=== PATIENT | male | born 1945 | race Caucasian/White ===

== ENCOUNTER 2019-02-07 16:44 | Inpatient (IN) | payer MEDICARE, OTHER | END 2019-02-14 19:38 | disposition left against medical advice (07) | LOC: J4W 02-13 10:16 → JER 16:44 → J4W 02-08 12:33 → JERBED 22:43 ==

== ENCOUNTER 2022-12-21 17:56 | Inpatient (IN) | payer MEDICARE, OTHER ==
[2022-12-21 18:10] VITALS: BMI 20.1
[2022-12-21 19:15] LABS: BASO % 0.6 % (0-2.0); EOS % 2.6 % (0-4.5); HEMATOCRIT 42.2 % (35.4-49); HEMOGLOBIN 14.1 GM/dL (11.7-16.9); MCH 28.4 pg (25.7-33.7); MCHC 33.4 g/dl (32.0-35.9); MEAN CELL VOLUME 85.1 fl (80-96); MEAN PLT VOLUME 9.1 fl (7.5-11.1); MONO % 11.5 % (3.8-10.2); NEUT % 73.3 % (42.8-82.8); PLATELET COUNT 191 10^3/uL (134-434); RBC 4.96 M/mm3 (4.00-5.60); RDW 14.1 % (11.9-15.9); WHITE BLOOD COUNT 5.9 K/mm3 (4.0-10.0)
[2022-12-21 19:18] LABS: EPI CELLS 15 /uL (0-25.1); HYALINE CASTS 1 /uL (0-3.1); URINE APPEARANCE CLEAR; URINE BACTERIA 4 /uL (0-1359); URINE BILIRUBIN NEGATIVE (NEGATIVE); URINE COLOR YELLOW; URINE GLUCOSE (UA) 2+ (NEGATIVE); URINE KETONE NEGATIVE (NEGATIVE); URINE LEUK ESTERASE NEGATIVE (NEGATIVE); URINE NITRITE NEGATIVE (NEGATIVE); URINE PROTEIN 3+ (NEGATIVE); URINE RBC 42 /uL (0-23.9); URINE UROBILINOGEN 0.2 mg/dL (0.2-1.0); URINE WBC 8 /uL (0-25.8)
[2022-12-21 19:36] LABS: POTASSIUM 4.4 mmol/L (3.5-5.1)
[2022-12-21 19:38] LABS: CALCIUM 9.5 mg/dL (8.5-10.1)
[2022-12-21 19:39] LABS: ALBUMIN 3.4 g/dl (3.4-5.0); BLOOD UREA NITROGEN 40.4 mg/dL (7-18)
[2022-12-21 19:42] LABS: CREATININE 2.4 mg/dL (0.55-1.3)
[2022-12-21 19:43] LABS: BILIRUBIN,TOTAL 0.5 mg/dL (0.2-1); TOT PROT 7.5 g/dl (6.4-8.2)
[2022-12-21] MEDS ORDERED: SODIUM CHLORIDE 1,000 ML IV STA (20:35)
[2022-12-21] MEDS ORDERED: hydrALAZINE HCL 20 MG/ML VIAL IVPUSH ONE (21:43)
[2022-12-21] MEDS ORDERED: hydrALAZINE HCL 20 MG/ML VIAL ONE ×2 (22:00→23:28)
[2022-12-21] MEDS: HEPARIN NA (PORCINE) 5,000 UNITS/ML 1ML VIAL SQ SCH (22:05)
[2022-12-21 23:09] LABS: COCAINE, UR NEGATIVE (NEGATIVE); METHADONE, UR NEGATIVE (NEGATIVE); PHENCYCLIDINE,URINE NEGATIVE (NEGATIVE)
[2022-12-21 23:10] LABS: OPIATES, URI NEGATIVE (NEGATIVE); URINE BARBITURATES NEGATIVE (NEGATIVE)
[2022-12-21] MEDS ORDERED: SODIUM CHLORIDE 1,000 ML IV SCH (23:15)
[2022-12-21 23:19] LABS: URINE AMPHETAMINES NEGATIVE (NEGATIVE); URINE BENZODIAZEPINES NEGATIVE (NEGATIVE)
[2022-12-21] MEDS ORDERED: LORazepam 2 MG/ML SDV VIAL IVPUSH ONE (23:21)
[2022-12-22] MEDS: hydrALAZINE HCL 20 MG/ML VIAL IVPUSH PRN (00:03)
[2022-12-22] MEDS: HEPARIN NA (PORCINE) 5,000 UNITS/ML 1ML VIAL SQ SCH ×3 (06:00→22:15)
[2022-12-22] MEDS: INSULIN SLIDING SCALE (NOVOLOG) 1 VIAL SQ SCH ×4 (06:07→22:32)
[2022-12-22 06:39] LABS: HEMATOCRIT 39.2 % (35.4-49); MCH 28.3 pg (25.7-33.7); MCHC 33.2 g/dl (32.0-35.9); MEAN CELL VOLUME 85.3 fl (80-96); MEAN PLT VOLUME 8.8 fl (7.5-11.1); PLATELET COUNT 167 10^3/uL (134-434); RBC 4.59 M/mm3 (4.00-5.60); RDW 13.7 % (11.9-15.9); WHITE BLOOD COUNT 4.8 K/mm3 (4.0-10.0)
[2022-12-22 06:57] LABS: POTASSIUM 3.9 mmol/L (3.5-5.1)
[2022-12-22 06:59] LABS: CALCIUM 8.6 mg/dL (8.5-10.1)
[2022-12-22 07:00] LABS: ALBUMIN 2.7 g/dl (3.4-5.0); BLOOD UREA NITROGEN 36.9 mg/dL (7-18); MAGNESIUM 1.9 mg/dL (1.8-2.4)
[2022-12-22 07:02] LABS: PHOSPHOROUS 2.6 mg/dL (2.5-4.9)
[2022-12-22 07:03] LABS: CREATININE 2.4 mg/dL (0.55-1.3)
[2022-12-22 07:04] LABS: TOT PROT 6.3 g/dl (6.4-8.2)
[2022-12-22 07:07] LABS: BILIRUBIN,TOTAL 0.5 mg/dL (0.2-1)
[2022-12-22] MEDS ORDERED: SODIUM CHLORIDE 1,000 ML IV SCH (07:28)
[2022-12-22] MEDS: hydrALAZINE HCL 25 MG TABLET (FP) PO SCH ×2 (08:03→13:00)
[2022-12-22] MEDS: NIFEdipine E.R. 30 MG TABLET PO SCH (09:38)
[2022-12-22] MEDS ORDERED: PATIENT'S OWN MEDICATION (NON-FORMULARY) (Losartan Potassium 100 MG Tablet) PO SCH (10:00)
[2022-12-22] MEDS ORDERED: NIFEdipine E.R. 90 MG TABLET PO SCH (10:00)
[2022-12-22] MEDS: ERYTHROMYCIN 0.5% OPHTHALMIC OINTMENT 3.5 GM TUBE OD SCH ×2 (11:09→15:38)
[2022-12-22] MEDS: DONEPEZIL HCL 5 MG TABLET (FP) PO SCH (22:14)
[2022-12-22] MEDS: QUEtiapine FUMARATE 25 MG TABLET PO SCH (22:14)
[2022-12-22] MEDS: hydrALAZINE HCL 50 MG TABLET (FP) PO SCH (22:15)
[2022-12-22] MEDS: ATORVASTATIN CA 20 MG TABLET (FP) PO SCH (22:15)
[2022-12-22] MEDS: DOXAZOSIN MESYLATE 2 MG TABLET PO SCH (22:30)
[2022-12-23] MEDS: HEPARIN NA (PORCINE) 5,000 UNITS/ML 1ML VIAL SQ SCH ×3 (05:59→21:56)
[2022-12-23] MEDS: hydrALAZINE HCL 50 MG TABLET (FP) PO SCH ×3 (05:59→21:55)
[2022-12-23] MEDS: INSULIN SLIDING SCALE (NOVOLOG) 1 VIAL SQ SCH ×3 (06:00→16:44)
[2022-12-23] MEDS: NIFEdipine E.R. 30 MG TABLET PO SCH ×2 (09:46→09:57)
[2022-12-23] MEDS: CARVEDILOL 6.25 MG TABLET (FP) PO SCH ×3 (09:46→21:56)
[2022-12-23 10:48] LABS: BASO % 0.7 % (0-2.0); EOS % 4.6 % (0-4.5); HEMATOCRIT 39.6 % (35.4-49); HEMOGLOBIN 13.4 GM/dL (11.7-16.9); LYMPH % 13.9 % (8-40); MCH 28.7 pg (25.7-33.7); MCHC 33.8 g/dl (32.0-35.9); MEAN CELL VOLUME 85.1 fl (80-96); MEAN PLT VOLUME 8.4 fl (7.5-11.1); MONO % 12.1 % (3.8-10.2); NEUT % 68.7 % (42.8-82.8); PLATELET COUNT 176 10^3/uL (134-434); RBC 4.65 M/mm3 (4.00-5.60); WHITE BLOOD COUNT 5.5 K/mm3 (4.0-10.0)
[2022-12-23 11:07] LABS: POTASSIUM 4.2 mmol/L (3.5-5.1)
[2022-12-23 11:08] LABS: CALCIUM 8.9 mg/dL (8.5-10.1)
[2022-12-23 11:12] LABS: CREATININE 2.6 mg/dL (0.55-1.3)
[2022-12-23 11:15] LABS: BLOOD UREA NITROGEN 33.9 mg/dL (7-18)
[2022-12-23] MEDS ORDERED: LORazepam 2 MG/ML SDV VIAL IVPUSH PRN (12:52)
[2022-12-23] MEDS ORDERED: LACTATED RINGERS SOLUTION 1,000 ML/1,000 ML INFUS.BAG IV SCH (17:30)
[2022-12-23 17:33] LABS: EPI CELLS 10 /uL (0-25.1); HYALINE CASTS 1 /uL (0-3.1); PH,URINE 5.5 (5.0-8.0); URINE APPEARANCE CLEAR; URINE BACTERIA 64 /uL (0-1359); URINE BILIRUBIN NEGATIVE (NEGATIVE); URINE COLOR YELLOW; URINE GLUCOSE (UA) TRACE (NEGATIVE); URINE KETONE NEGATIVE (NEGATIVE); URINE LEUK ESTERASE TRACE (NEGATIVE); URINE NITRITE NEGATIVE (NEGATIVE); URINE PROTEIN 3+ (NEGATIVE); URINE RBC 30 /uL (0-23.9); URINE UROBILINOGEN 0.2 mg/dL (0.2-1.0); URINE WBC 53 /uL (0-25.8)
[2022-12-23] MEDS: DOXAZOSIN MESYLATE 2 MG TABLET PO SCH (21:56)
[2022-12-23] MEDS: DONEPEZIL HCL 5 MG TABLET (FP) PO SCH (21:56)
[2022-12-23] MEDS: ATORVASTATIN CA 20 MG TABLET (FP) PO SCH (21:57)
[2022-12-23] MEDS: QUEtiapine FUMARATE 25 MG TABLET PO SCH (21:57)
[2022-12-24] MEDS ORDERED: INSULIN SLIDING SCALE (NOVOLOG) 1 VIAL SQ ONE (00:06)
[2022-12-24] MEDS: INSULIN SLIDING SCALE (NOVOLOG) 1 VIAL SQ SCH ×5 (00:21→22:29)
[2022-12-24] MEDS: HEPARIN NA (PORCINE) 5,000 UNITS/ML 1ML VIAL SQ SCH ×3 (05:30→22:26)
[2022-12-24] MEDS: hydrALAZINE HCL 50 MG TABLET (FP) PO SCH ×4 (05:30→22:39)
[2022-12-24] MEDS: NIFEdipine E.R. 30 MG TABLET PO SCH ×2 (10:29→10:52)
[2022-12-24] MEDS: CARVEDILOL 6.25 MG TABLET (FP) PO SCH ×4 (10:29→22:40)
[2022-12-24] MEDS: QUEtiapine FUMARATE 25 MG TABLET PO SCH ×2 (22:21→22:42)
[2022-12-24] MEDS: DONEPEZIL HCL 5 MG TABLET (FP) PO SCH ×2 (22:22→22:40)
[2022-12-24] MEDS: ATORVASTATIN CA 20 MG TABLET (FP) PO SCH ×2 (22:22→22:42)
[2022-12-24] MEDS: DOXAZOSIN MESYLATE 2 MG TABLET PO SCH ×2 (22:23→22:40)
[2022-12-25] MEDS: HEPARIN NA (PORCINE) 5,000 UNITS/ML 1ML VIAL SQ SCH ×3 (06:17→23:21)
[2022-12-25] MEDS: hydrALAZINE HCL 50 MG TABLET (FP) PO SCH ×3 (06:18→23:21)
[2022-12-25] MEDS: INSULIN SLIDING SCALE (NOVOLOG) 1 VIAL SQ SCH ×4 (06:23→23:22)
[2022-12-25 07:41] LABS: POTASSIUM 4.2 mmol/L (3.5-5.1)
[2022-12-25 07:42] LABS: CALCIUM 8.9 mg/dL (8.5-10.1)
[2022-12-25 07:43] LABS: BLOOD UREA NITROGEN 37.8 mg/dL (7-18); MAGNESIUM 1.8 mg/dL (1.8-2.4)
[2022-12-25 07:46] LABS: CREATININE 2.9 mg/dL (0.55-1.3); PHOSPHOROUS 3.1 mg/dL (2.5-4.9)
[2022-12-25] MEDS: CARVEDILOL 6.25 MG TABLET (FP) PO SCH ×2 (10:00→23:21)
[2022-12-25] MEDS: NIFEdipine E.R. 30 MG TABLET PO SCH (10:00)
[2022-12-25] MEDS ORDERED: INSULIN SLIDING SCALE (NOVOLOG) 1 VIAL SQ ONE ×2 (12:14→17:05)
[2022-12-25] MEDS: DOXAZOSIN MESYLATE 2 MG TABLET PO SCH (23:21)
[2022-12-25] MEDS: DONEPEZIL HCL 5 MG TABLET (FP) PO SCH (23:21)
[2022-12-25] MEDS: ATORVASTATIN CA 20 MG TABLET (FP) PO SCH (23:21)
[2022-12-25] MEDS: QUEtiapine FUMARATE 25 MG TABLET PO SCH (23:22)
[2022-12-26] MEDS: hydrALAZINE HCL 50 MG TABLET (FP) PO SCH ×4 (06:32→21:38)
[2022-12-26] MEDS: HEPARIN NA (PORCINE) 5,000 UNITS/ML 1ML VIAL SQ SCH ×4 (06:33→21:38)
[2022-12-26] MEDS: INSULIN SLIDING SCALE (NOVOLOG) 1 VIAL SQ SCH ×4 (06:33→21:30)
[2022-12-26 09:30] LABS: POTASSIUM 4.1 mmol/L (3.5-5.1)
[2022-12-26 09:36] LABS: CALCIUM 9.1 mg/dL (8.5-10.1)
[2022-12-26 09:37] LABS: ALBUMIN 2.8 g/dl (3.4-5.0)
[2022-12-26 09:40] LABS: CREATININE 2.8 mg/dL (0.55-1.3)
[2022-12-26 09:41] LABS: TOT PROT 6.8 g/dl (6.4-8.2)
[2022-12-26 09:42] LABS: BILIRUBIN,TOTAL 0.4 mg/dL (0.2-1)
[2022-12-26] MEDS: CARVEDILOL 6.25 MG TABLET (FP) PO SCH ×3 (10:24→21:38)
[2022-12-26] MEDS: NIFEdipine E.R. 30 MG TABLET PO SCH ×2 (10:24→10:34)
[2022-12-26] MEDS ORDERED: HALOPERIDOL LACTATE 5 MG/ML IM ONE (15:01)
[2022-12-26] MEDS: DONEPEZIL HCL 5 MG TABLET (FP) PO SCH (21:38)
[2022-12-26] MEDS: DOXAZOSIN MESYLATE 2 MG TABLET PO SCH (21:38)
[2022-12-26] MEDS: ATORVASTATIN CA 20 MG TABLET (FP) PO SCH (21:38)
[2022-12-26] MEDS: QUEtiapine FUMARATE 25 MG TABLET PO SCH (21:39)
[2022-12-26] MEDS: hydrALAZINE HCL 20 MG/ML VIAL IVPUSH PRN (21:41)
[2022-12-26 22:06] LABS: ANTIGLOMERULAR BASEMENT MEN.AB <0.2 units (0.0-0.9); ATYPICAL pANCA <1:20 titer (Neg:<1:20); C-ANCA <1:20 titer (Neg:<1:20)
[2022-12-27] MEDS: hydrALAZINE HCL 20 MG/ML VIAL IVPUSH PRN (02:23)
[2022-12-27] MEDS: HEPARIN NA (PORCINE) 5,000 UNITS/ML 1ML VIAL SQ SCH ×3 (05:51→22:23)
[2022-12-27] MEDS: hydrALAZINE HCL 50 MG TABLET (FP) PO SCH (05:51)
[2022-12-27] MEDS: INSULIN SLIDING SCALE (NOVOLOG) 1 VIAL SQ SCH ×4 (06:05→22:23)
[2022-12-27 06:45] LABS: HEMATOCRIT 39.8 % (35.4-49); HEMOGLOBIN 12.9 GM/dL (11.7-16.9); MCH 28.1 pg (25.7-33.7); MCHC 32.4 g/dl (32.0-35.9); MEAN CELL VOLUME 86.7 fl (80-96); MEAN PLT VOLUME 8.9 fl (7.5-11.1); PLATELET COUNT 241 10^3/uL (134-434); RBC 4.59 M/mm3 (4.00-5.60); RDW 13.6 % (11.9-15.9)
[2022-12-27 07:16] LABS: POTASSIUM 4.3 mmol/L (3.5-5.1)
[2022-12-27 07:17] LABS: CALCIUM 9.2 mg/dL (8.5-10.1)
[2022-12-27 07:18] LABS: BLOOD UREA NITROGEN 40.4 mg/dL (7-18); MAGNESIUM 1.9 mg/dL (1.8-2.4)
[2022-12-27 07:21] LABS: CREATININE 2.5 mg/dL (0.55-1.3); PHOSPHOROUS 3.7 mg/dL (2.5-4.9)
[2022-12-27] MEDS: NIFEdipine E.R. 30 MG TABLET PO SCH (10:37)
[2022-12-27] MEDS: CARVEDILOL 6.25 MG TABLET (FP) PO SCH (10:39)
[2022-12-27] MEDS: VALSARTAN 160 MG TABLET PO SCH (14:51)
[2022-12-27] MEDS: DONEPEZIL HCL 5 MG TABLET (FP) PO SCH (22:23)
[2022-12-27] MEDS: ATORVASTATIN CA 20 MG TABLET (FP) PO SCH (22:23)
[2022-12-27] MEDS: QUEtiapine FUMARATE 25 MG TABLET PO SCH (22:23)
[2022-12-28] MEDS: INSULIN SLIDING SCALE (NOVOLOG) 1 VIAL SQ SCH ×4 (06:35→21:27)
[2022-12-28] MEDS: HEPARIN NA (PORCINE) 5,000 UNITS/ML 1ML VIAL SQ SCH ×3 (06:35→21:26)
[2022-12-28] MEDS: VALSARTAN 160 MG TABLET PO SCH ×2 (10:00→10:06)
[2022-12-28] MEDS: NIFEdipine E.R. 30 MG TABLET PO SCH ×2 (10:00→10:06)
[2022-12-28] MEDS: DONEPEZIL HCL 5 MG TABLET (FP) PO SCH (21:26)
[2022-12-28] MEDS: ATORVASTATIN CA 20 MG TABLET (FP) PO SCH (21:27)
[2022-12-28] MEDS: QUEtiapine FUMARATE 25 MG TABLET PO SCH (21:28)
[2022-12-29] MEDS: hydrALAZINE HCL 20 MG/ML VIAL IVPUSH PRN ×2 (03:14→22:52)
[2022-12-29] MEDS: HEPARIN NA (PORCINE) 5,000 UNITS/ML 1ML VIAL SQ SCH ×3 (06:56→22:50)
[2022-12-29] MEDS: INSULIN SLIDING SCALE (NOVOLOG) 1 VIAL SQ SCH ×4 (06:56→22:51)
[2022-12-29] MEDS ORDERED: amLODIPine BESYLATE 10 MG TABLET (FP) PO ONE (08:00)
[2022-12-29 09:18] LABS: POTASSIUM 4.4 mmol/L (3.5-5.1)
[2022-12-29 09:20] LABS: BLOOD UREA NITROGEN 40.9 mg/dL (7-18); CALCIUM 9.1 mg/dL (8.5-10.1)
[2022-12-29 09:24] LABS: CREATININE 2.5 mg/dL (0.55-1.3); PHOSPHOROUS 3.2 mg/dL (2.5-4.9)
[2022-12-29] MEDS: VALSARTAN 160 MG TABLET PO SCH ×2 (10:34→10:37)
[2022-12-29] MEDS ORDERED: VALSARTAN 160 MG TABLET PO ONE (12:27)
[2022-12-29] MEDS: DONEPEZIL HCL 5 MG TABLET (FP) PO SCH (22:49)
[2022-12-29] MEDS: QUEtiapine FUMARATE 25 MG TABLET PO SCH (22:50)
[2022-12-29] MEDS: ATORVASTATIN CA 20 MG TABLET (FP) PO SCH (22:50)
[2022-12-30] MEDS: INSULIN SLIDING SCALE (NOVOLOG) 1 VIAL SQ SCH ×2 (07:25→11:41)
[2022-12-30] MEDS: HEPARIN NA (PORCINE) 5,000 UNITS/ML 1ML VIAL SQ SCH (07:25)
[2022-12-30] MEDS: VALSARTAN 160 MG TABLET PO SCH (09:58)
[2022-12-30] MEDS ORDERED: amLODIPine BESYLATE 10 MG TABLET (FP) PO SCH (10:00)
[2022-12-30 12:24] VITALS: BP 160/66; PULSE 64; RESP 18; TEMP 97.8
== END 2022-12-30 13:28 | disposition home or self-care (01) | DRG 77 ==
LOC: JER 17:56 → JERBED 21:43 → OBSVTOIN 22:00 → J4S 12-22 00:11
PROVIDERS: ADMIT Internal Medicine; ATTEND Internal Medicine
DX: I67.4 Hypertensive encephalopathy (principal); E43 Unspecified severe protein-calorie malnutrition; I13.0 Hypertensive heart and chronic kidney disease with heart failure and stage 1 through stage 4 chronic kidney disease, or unspecified chronic kidney disease; F01.518 Vascular dementia, unspecified severity, with other behavioral disturbance; I69.354 Hemiplegia and hemiparesis following cerebral infarction affecting left non-dominant side; R13.10 Dysphagia, unspecified; E11.9 Type 2 diabetes mellitus without complications; N18.30 Chronic kidney disease, stage 3 unspecified; E11.22 Type 2 diabetes mellitus with diabetic chronic kidney disease; I69.320 Aphasia following cerebral infarction; Z68.20 Body mass index [BMI] 20.0-20.9, adult
CPT/HCPCS: 0241U-QW; 36415; 70450-TC; 70551-TC; 71045-TC-FY; 76775-TC; 80048; 80053; 80307; 81003; 82570; 82962; 83036; 83516; 83520; 83735; 83935; 84100; 84155; 84156; 84165; 84300; 84484; 84560; 85025; 85027; 86038; 86225; 86256; 87040; 87086; 93005; 93010; 93306-TC; 95816; 97116-GP; 97161-GP; 99285-25; G0378; J1644